=== PATIENT | male | born 1930 | race Asian ===

== ENCOUNTER 2017-05-01 14:44 | Emergency (ER) | payer MEDICARE, MEDICAID ==
[~2017-05-01] VITALS: Ht 177.8 cm; Wt 77.1 kg
[~2017-05-01 14:44] MED LIST: ACTOS PO; ACTOS30 MG PO; DIOVAN PO; DIOVAN80 MG PO; FLOMAX PO; FLOMAX0.4 MG PO; PRILOSEC PO; PRILOSEC20 MG PO; ZYLOPRIM; ZYLOPRIM100 MG PO
[2017-05-01 14:49] VITALS: BP 168/75
[2017-05-01] MEDS ORDERED: Tetanus/Diptheria/Pertussis Vaccine 0.5ml Syr IM ONE (15:15)
[2017-05-01] MEDS ORDERED: Lidocaine 1% 10mg/ml/Epi 0.005mg/ml 30ml vial INJ ONE (15:15)
--- NOTE | 2017-05-01 15:50 | Diagnostic Imaging Report ---
Indication: PAIN Technique: spiral acquisitions obtained through the brain. Angled axial and coronal 5 x 5 mm slices were reconstructed. No IV contrast utilized. Radiation dose was minimized using automated exposure control Total dose length product 1347 mGycm. CTDIvol(s) 70 mGy Comparison: 01/14/2013 FINDINGS: No acute hemorrhage or edema. No mass effect or midline shift. There is age-related enlargement of the ventricles and extra axial CSF spaces. There is periventricular deep white matter ischemic change. There is encephalomalacia of the medial left cerebellar hemisphere. This appears slightly increased from the previous study Normal chavis-white differentiation. Visualized orbits are unremarkable. Visualized sinuses are unremarkable. Intact calvarium. IMPRESSION: Chronic and age-related changes. 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
--- NOTE | 2017-05-01 16:10 | Diagnostic Imaging Report ---
Indication: PAIN Technique: Spiral acquisitions obtained through the cervical spine. No IV contrast utilized. Multiplanar reconstructions were generated. Total dose length product 268 mGycm. CTDIvol(s) 12 mGy. Dose reduction achieved using automated exposure control Comparison: None Findings: There is slight anterior offset of C5 on C6. Otherwise normal cervical bony alignment no acute fractures. No cervical dislocations. There is mild degenerative disc narrowing at C6-7. There is vacuum formation at C5-6 with preservation of the disc space. There is anterior offset of the bilateral mandibular condyles in relation to the glenoid fossae. At C3-4, there is mild bilateral facet arthrosis. There is posterior central disc protrusion which results in mild narrowing of the spinal canal. There is mild bilateral neural frontal stenosis. At C4-5, there is mild central posterior disc protrusion which results in borderline narrowing of the spinal canal. There is mild to moderate right, minimal left neural foraminal stenosis. There is considerable facet arthrosis on the right. At C5-6, there is, as mentioned above, vacuum formation. There are posterior osteophytes which result in borderline narrowing of the spinal canal. There is minimal bilateral neural foraminal narrowing bilaterally. At C6-7, no significant disc bulge or protrusion or spinal stenosis. There is moderate to severe left neural foraminal stenosis due to facet arthrosis. At C7-T1, there is mild left neural foraminal stenosis. No significant disc bulge or protrusion or spinal stenosis The included extraspinal soft tissues are unremarkable. Impression: No acute cervical bony trauma Anterior offset of the bilateral mandibular condyles. Most likely physiologic anterior translocation if the patient's mouth was open during the exam, but the possibility of bilateral temporomandibular joint subluxation should be considered. Degenerative changes, as detailed above The CT scanner at [facility] is accredited by the [employer] and the scans are performed using protocols designed to limit radiation exposure to as low as reasonably achievable to attain images of sufficient resolution adequate for diagnostic evaluation.
--- NOTE | 2017-05-01 16:18 | Diagnostic Imaging Report ---
Indications:PAIN Technique: Three or 4 views of the left elbow Comparison: None Findings:No acute fractures. No dislocations. Joint spaces are preserved Impression:Negative
[2017-05-01] MEDS ORDERED: TYLENOL EXTRA500 MG ORAL (16:42)
[2017-05-01 17:00] VITALS: BP 154/71
[2017-05-01 17:35] VITALS: BP 154/71
--- NOTE | 2017-05-01 18:47 | Emergency Room Report ---
History of Present Illness General Chief Complaint: Multiple Trauma/Fall Source: Patient, Family Member, EMS Present Illness HPI The patient is an 86-year-old male presenting for pain after fall. He is brought in by EMS from a shopping facility. The patient is accompanied by his nephew. He states that the patient had to use the restroom, turned around, and tried to walk up an escalator in the wrong direction. He promptly fell and hit his head. He denies loss of consciousness. Pain is a 3/10 dull ache and does not radiate from the left head. Worse with touch. He denies any other symptoms including nausea, vomiting, dizziness, blurred vision, neck pain, shortness of breath, chest pain Allergies: Coded Allergies: No Known Allergies (Unverified , 05/15/12) Patient History Past Medical History: see triage record Pertinent Family History: none Reviewed Nursing Documentation: PMH: Agreed, PSxH: Agreed Nursing Documentation-PMH Past Medical History: No History, Except For Hx Cardiac Problems: Yes Hx Hypertension: Yes Hx Diabetes: Yes Hx Cancer: No Hx Gastrointestinal Problems: Yes - PANCREATIC STENT PLACEMENT Hx Neurological Problems: No Review of Systems All Other Systems: negative except mentioned in HPI Physical Exam Vital Signs Date Time Temp Pulse Resp B/P (MAP) Pulse Ox O2 Delivery O2 Flow Rate FiO2 05/01/17 14:40 97.7 84 20 168/75 99 Room Air Sp02 EP Interpretation: reviewed, normal General Appearance: no apparent distress, alert, GCS 15, non-toxic Head: normocephalic, atraumatic, other - L face laceration Eyes: left eye lid inflammation, bilateral eye normal inspection, bilateral eye PERRL ENT: hearing grossly normal, normal pharynx, no angioedema, normal voice Neck: full range of motion, supple/symm/no masses Respiratory: chest non-tender, lungs clear, normal breath sounds, speaking full sentences Musculoskeletal: back normal, gait/station normal, normal range of motion, non- tender Neurologic: alert, oriented x3, responsive, motor strength/tone normal, sensory intact, speech normal Psychiatric: judgement/insight normal, memory normal, mood/affect normal, no suicidal/homicidal ideation Skin: normal color, no rash, warm/dry, well hydrated, laceration - L face has 4 linear lacerations lateral to eye Lymphatic: no adenopathy Procedures Laceration/Wound Repair Laceration/Wound Repair : Consent: Verbal Wound Location: face Wound's Depth, Shape: superficial, linear Wound Length (cm): 7 - in total Wound Explored: clean Irrigated w/ Saline (ccs): 100 Betadine Prep?: Yes Anesthesia: 1% Lidocaine, Lidocaine w/ Epi Volume Anesthetic (ccs): 8 Wound Debrided: minimal Wound Repaired With: sutures Suture Size/Type: 5:0, nylon Number of Sutures: 9 Layer Closure?: No Sterile Dressing Applied?: Yes Splint Applied?: No Sling Applied?: No Patient Tolerated: Well Complications: None Medical Decision Making PA Attestation Dr. Wong is my supervising physician. Patient management was discussed with my supervising physician Diagnostic Impression: Primary Impression: Facial laceration Qualified Codes: S01.81XA - Laceration without foreign body of other part of head, initial encounter Additional Impression: Fall Qualified Codes: W19.XXXA - Unspecified fall, initial encounter ER Course The patient is an 86-year-old male presenting for pain after fall. Differential diagnoses considered but not limited to: laceration, Concussion, contusion, intracranial hemorrhage, fracture, among others PE: NAD Head is NC. There are 4 linear lacerations lateral to the left eye. Minimal bleeding. PERRL. EOMI Neck is soft and supple. Non tender. Full AROM intact The wound was irrigated with normal saline and cleaned with betadine. A 27g needle was used to administer 8mL of lidocaine w epi for local anasthesia. 9 sutures were placed with 5-0 Nylon. The wound was well approximated and the patient tolerated the procedure well. The wound was then cleaned CT scan of the head and C-spine show no acute findings. The patient will be discharged home with family member. ER precautions are given CT/MRI/US Diagnostic Results CT/MRI/US Diagnostic Results #1: Imaging Test Ordered: CT head Impression No acute findings CT/MRI/US Diagnostic Results #2: Imaging Test Ordered: CT C spine Impression No acute findings Last Vital Signs Date Time Temp Pulse Resp B/P (MAP) Pulse Ox O2 Delivery O2 Flow Rate FiO2 05/01/17 17:37 97.7 05/01/17 17:35 81 17 154/71 99 Room Air Status: improved Disposition: HOME, SELF-CARE Condition: Improved Scripts Acetaminophen* (TYLENOL EXTRA STRENGTH*) 500 Mg Tablet 500 MG ORAL Q8H Y for Prn Headache/Temp > 101, #30 TAB 0 Refills Prov: ALEXIA FOLEY 05/01/17 Patient Instructions: Head Injury, Adult, Facial Laceration Additional Instructions: I discussed my findings with the patient. All questions and concerns have been answered. Treatment and medication compliance have been addressed.Return to ED if symptoms worsen, new symptoms arise, or if needed for any reason. Patient verbalized understanding of discharge instructions. I informed the patient he needs to followup with his primary doctor in 7 days for wound check and suture removal. Please keep the area clean and dry. Return to emergency department if you notice any symptoms including nausea, vomiting, dizziness, blurred vision, chest pain, shortness of breath ALEXIA FOLEY May 01, 2017 18:47
== END 2017-05-01 17:37 | disposition home or self-care (01) ==
LOC: EDBD 14:44 → EMR 15:09
DX: S01.81XA Laceration without foreign body of other part of head, initial encounter (principal); W10.0XXA Fall (on)(from) escalator, initial encounter; Y92.89 Other specified places as the place of occurrence of the external cause; Z23 Encounter for immunization; R51 Headache; I11.0 Hypertensive heart disease with heart failure; E11.9 Type 2 diabetes mellitus without complications
CPT/HCPCS: 70450; 72125; 90471; 90715; 99284